=== PATIENT | male | born 2005 | race Caucasian/White ===

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

== ENCOUNTER 2025-05-09 07:49 | Day surgery (SDC) | payer BC, SELFPAY ==
[2025-05-09] VITALS (58 sets, daily range): BP systolic 81–142; BP diastolic 28–90; PULSE 58–121; RESP 14–22; TEMP 36.1–37.1; O2SAT 96–100; BMI 22.4
[2025-05-09] MEDS: Lactated Ringers 1,000 ML 1000 ML IV (08:20)
--- NOTE | 2025-05-09 08:21 | W.ED.GENAD ---
Discharge Plan Disposition Patient Disposition: Admit to [facility] Condition: Serious Discharge Details Clinical Impression: Acute appendicitis, Metabolic acidosis, increased anion gap Primary Care Provider: Mimi York ED Provider: Jhon Avalos Home Meds and New Rx's Prescriptions: No Action No Known Home Meds [facility] General Mode of arrival: ambulatory. Date/Time Provider Initiated Documentation: 05/09/25 08:00. Limitations to Documentation: no limitations. Information obtained by: patient. HPI Narrative: HISTORY OF PRESENT ILLNESS This is a 19-year-old male presenting with abdominal pain and vomiting. The patient reports experiencing abdominal pain that started at 2 AM today. The pain is described as radiating from left lower abdomen to the middle and then to the right lower abdomen, primarily located in the middle lower of the abdomen. He describes the pain as serious and has been vomiting since the onset. He also noticed a foul odor in his urine, which was light yellow in color. Additionally, he is experiencing chest pain, which he believes is due to the strain from vomiting. The patient has a history of similar episodes, which he refers to as attacks, characterized by constant vomiting, inability to eat, and chest pain. These attacks were previously associated with marijuana use, but he reports no recent use of marijuana or other drugs. He occasionally consumes alcohol, with his last intake being a week ago, and he vapes. He reports no recent fever, rash, swelling, burning sensation during urination, or penile discharge. He is not currently on any medications. Related Data Home Medications ?Medication ?Instructions ?Recorded ?Confirmed Unknown [No Known Home Meds] 05/09/25 05/09/25 Allergies Allergy/AdvReac Type Severity Reaction Status Date / Time No Known Allergies Allergy Verified 05/09/25 07:58 General Stated Complaint: Abd Prob LEONEL: 3 Review of Systems All systems reviewed & are unremarkable except as noted in HPI and below Constitutional Constitutional: Denies fever(s) Gastrointestinal Gastrointestinal: Reports as per HPI Exam Const General: cooperative and no acute distress HENMT Mouth: mucous membranes dry Eyes Conjunctivae: normal conjunctivae Sclera: normal sclerae Neck Neck: trachea midline and supple Resp Auscultation: clear to auscultation bilaterally, no rales, no rhonchi and no wheezes Cardio Rate: regular rate and not tachycardic Rhythm: regular rhythm GI Palpation: soft, not firm, no guarding, no masses, not rigid and tender (Lower abdomen) with no rebound tenderness Skin General skin exam: no rashes or lesions noted Neuro General: patient alert, patient awake and tone normal Extrem General: no edema Course Vital Signs Vital signs: Vital Signs Pulse 113 H 05/09/25 07:56 Respiratory Rate 20 05/09/25 07:56 Blood Pressure 123/78 05/09/25 07:56 Pulse Oximetry 98 05/09/25 07:56 Pulse 113 H 05/09/25 07:56 Respiratory Rate 20 05/09/25 07:56 Blood Pressure 123/78 05/09/25 07:56 Blood Pressure Position Sitting 05/09/25 07:56 Pulse Oximetry 98 05/09/25 07:56 Oxygen Delivery Method Room Air 05/09/25 07:56 Oxygen Flow Rate 0 05/09/25 07:56 Pain Level 10 05/09/25 07:56 Medical Decision Making ASSESSMENT AND PLAN Initial Assessment: Reports severe lower abdominal pain starting at 2 AM, accompanied by vomiting and foul-smelling urine. Pain described as more in the middle, radiating from one side to the other. Differential Diagnosis: - Appendicitis - Pancreatitis - Hepatitis - Gastroenteritis ED Course: - Zofran IV, Pepcid IV, LR IV fluid bolus administered. - Comprehensive set of labs ordered to assess for electrolyte abnormalities and other potential causes. - Labs reviewed and significant leukocytosis. Given retching and chest pain, consider esophageal rupture. Will obtain CT chest in addition to CT of the abdomen pelvis to assess for acute intra-abdominal surgical process. -Labs also concerning for metabolic acidosis with anion gap of 17. Hyperglycemia noted of 176. Plan to repeat. - CT of the chest abdomen pelvis was interpreted by radiology: 1. Findings consistent with acute appendicitis. - Plan to admit to surgical service. Ceftriaxone and Flagyl IV ordered. - 1012 -I spoke with Dr. Raymond, on-call general surgeon, discussed ED presentation course, he will admit the patient with plan for OR later today. - Patient reassessed, informed him and mother of results. Patient anxious. I will give Versed 1 mg IV for anxiety. Clinical Impression: - Acute appendicitis - Vomiting This document was written with the assistance of MARCUS Zuniga. The patient consented to its use. PFSH All Active Problems (Updated 05/09/25 @ 10:14 by Jhon Avalos MD) Metabolic acidosis, increased anion gap (Acute) Acute appendicitis (Acute) Pediatric body mass index (BMI) of greater than or equal to 95th percentile for age (Acute 11/25/15) Family History Mother Healthy adult on routine physical examination Father Healthy adult on routine physical examination Grandparent Heart disease Hyperlipidemia Cancer Social History Smoking/Tobacco Use Status: Current every day Tobacco Type: e-cigarettes Smoking risk assessment performed?: Yes Alcohol Intake: current Alcohol Intake frequency: holidays/special occasions only Drug use: Current Sobriety Substance use type: marijuana Details: girlfriend smokes marijuana but pt states he is allergic to it Housing: house Pets and animals: Yes Pets and animals: cat(s) and dog(s) Do you feel safe at home: Yes Do you feel safe in your relationship?: Yes
[2025-05-09 08:30] LABS: Abs Immature Grans 0.08 10^3/uL (0.0-0.06); HCT 45.1 % (40.0-50.0); HGB 15.7 g/dL (13.5-17.5); Immature Grans % 0.4 %; MCH 29.4 pg (27.0-33.0); MCHC 34.8 % (32.0-36.0); MCV 85 fL (80-95); MPV 10.3 fL (8.0-11.0); Platelet Count 318 10^3/uL (130-400); RBC 5.34 10^6/uL (4.36-5.78); RDW 13.1 % (11.8-14.1); RDW-SD 40.0 fL; WBC 21.62 10^3/uL (4.4-10.8)
[2025-05-09] MEDS: Ondansetron 4 MG/2 ML VIAL IVP (08:32)
[2025-05-09] MEDS: Normal Saline Flush 10 ML SYR IVP ×4 (08:33→11:21)
[2025-05-09] MEDS: Famotidine 20 MG/2 ML VIAL IVP (08:33)
--- NOTE | 2025-05-09 08:45 | DI.CT_ITS ---
Exam(s) CT CHEST/ABD/PEL W EXAM: CT CHEST/ABD/PEL W CLINICAL HISTORY: lower abd pain, vomiting, retching, chest pain. TECHNIQUE: Imaging Protocol: Axial computed tomography images with coronal and sagittal reformatted images were created and reviewed CONTRAST MATERIAL: Intravenous: Omnipaque 350 Contrast volume:100 ml Oral: None COMPARISON: No exams were available for comparison FINDINGS: CHEST: LUNGS: No infiltrates nor pleural effusions. No significant nodules. No pneumothorax.. MEDIASTINUM: There is no hilar nor mediastinal adenopathy. Visualized thyroid unremarkable. CARDIAC: Heart size is normal. There is no pericardial effusion.Caliber of the thoracic aorta is within normal limits. OSSEOUS: No significant osseous lesions.No fractures.. ABDOMEN: There is no ascites. LIVER: There are no focal hepatic lesions nor dilatation of intrahepatic ducts. GALLBLADDER/BILIARY: No obvious gallbladder pathology. CBD is not dilated. PANCREAS: No evidence of pancreatic mass nor dilatation of the pancreatic duct. SPLEEN: Spleen is not enlarged. There are no intrasplenic lesions. Splenic and portal veins are patent. ADRENALS: There are no significant adrenal masses. KIDNEYS: No calculi nor hydronephrosis. No solid renal masses. No cysts evident. ABDOMINAL AORTA: Abdominal aorta is not enlarged. LYMPH NODES: There is no retroperitoneal nor paraaortic adenopathy. ABDOMINAL WALL: No evidence of significant anterior abdominal wall nor inguinal hernia. GI: There is no evidence of bowel obstruction. PELVIS: LYMPH NODES: There is no intrapelvic nor inguinal adenopathy. GI: The appendix contains multiple calcified appendicoliths and the appendix is fluid-filled and widened to diameter of 10 mm.. consistent with appendicitis. No evidence of rupture at this time.No significant sigmoid findings. URINARY BLADDER: No calculi nor masses evident REPRODUCTIVE: Prostate normal size. Seminal vesicles unremarkable. OSSEOUS: No significant osseous lesions. No fractures. IMPRESSION: 1. Findings consistent with acute appendicitis. Report called by myself to ER 05/09/2025 at 10:05 a.m. RADIATION DOSE DELIVERED: 420.18mGy.cm Total DLP DATA REPOSITORY: All CT scans at this facility are submitted to the National Radiology Data Registry (NRDR) Dose Index Registry (DIR) with the [employer] (ACR). RADIATION OPTIMIZATION: All CT scans at this facility use at least one of these dose optimization techniques: automated exposure control; mA and/or kV adjustment per patient size (includes targeted exams where dose is matched to clinical indication); or iterative reconstruction.
[2025-05-09 09:06] LABS: ALT 10 U/L (16-63); AST 13 U/L (15-37); Albumin 4.6 g/dL (3.4-5.0); Alkaline Phosphatase 62 U/L (46-116); Anion Gap 17.0 mmol/L (3-11); BUN 11 mg/dL (7-18); Bilirubin, Total 1.4 mg/dL (0.2-1.0); CO2 23.0 mmol/L (21.0-32.0); Calcium 9.7 mg/dL (8.5-10.1); Chloride 101 mmol/L (98-107); Estimated GFR 99.17 (mL/min/1.73m2); Glucose 176 mg/dL (74-106); Lipase 17 U/L (<78); Magnesium 1.8 mg/dL (1.8-2.4); Potassium 3.6 mmol/L (3.5-5.1); Sodium 141 mmol/L (136-145); Total Protein 8.0 g/dL (6.4-8.2)
[2025-05-09] MEDS: Omnipaque 350 MG/ML 500 ML BTL-Imaging package IJ (09:23)
[2025-05-09] MEDS: Normal Saline - Diluent 50 ML VIAL IJ (09:23)
[2025-05-09] MEDS: cefTRIAXone 1 GM/50 ML BAG IVPB (10:15)
[2025-05-09] MEDS: metroNIDAZOLE 500 MG/100 ML BAG 100 MG IVPB (10:15)
--- NOTE | 2025-05-09 10:15 | W.PM.HP.N ---
Date of service: 05/09/25 Time of Service: 10:15 Assessment and Plan Assessment and plan (1) Acute appendicitis: Status: Acute Assessment and plan: I reviewed the CAT scan, and I do believe it is concordant with his history and physical exam, which all point to acute uncomplicated appendicitis. I explained the role of laparoscopic appendectomy and the treatment of appendicitis, what to expect in terms of recovery. I explained the risks and the benefits of the procedure, and I think Black has a good understanding of all of this. He has already been started on broad-spectrum antibiotics, and I anticipate urgent appendectomy today. History of Present Illness History of Present Illness Chief Complaint: Abdominal pain Narrative: Black is 19 years old. He was awoken from sleep with stabbing suprapubic pain around 2 AM. It sounds like this was preceded by about 2 to 3 days of not really feeling well, maybe with a little bit of abdominal discomfort. The pain last night was associated with nausea, and several episodes of vomiting. He came to the emergency department was found to have a leukocytosis around 22,000. He underwent a CT scan of the abdomen and pelvis that demonstrated acute appendicitis. He has never had any abdominal surgery. He has no allergies Review of Systems Constitutional Constitutional: Denies fever(s), Denies night sweats, Reports poor appetite and Denies weight loss Eyes Eyes: Reports system reviewed and no additional complaints, except as documented ENT Ears, Nose, Mouth, and Throat: Reports system reviewed and no additional complaints, except as documented Cardiovascular Cardiovascular: Reports chest pain (He believes secondary to vomiting) and Denies dyspnea Respiratory Respiratory: Denies chest congestion, Denies cough and Denies dyspnea Gastrointestinal Gastrointestinal: Reports abdominal pain, Reports nausea and Reports vomiting Genitourinary Genitourinary: Reports system reviewed and no additional complaints, except as documented Musculoskeletal Musculoskeletal: Reports system reviewed and no additional complaints, except as documented Psychiatric Psychiatric: Reports anxiety Hematologic/Lymphatic Hematologic/Lymphatic: Denies easy bleeding and Denies easy bruising PFSH All Active Problems (Updated 05/09/25 @ 10:14 by Jhon Avalos MD) Metabolic acidosis, increased anion gap (Acute) Acute appendicitis (Acute) Pediatric body mass index (BMI) of greater than or equal to 95th percentile for age (Acute 11/25/15) Family History Mother Healthy adult on routine physical examination Father Healthy adult on routine physical examination Grandparent Heart disease Hyperlipidemia Cancer Social History Smoking/Tobacco Use Status: Current every day Tobacco Type: e-cigarettes Smoking risk assessment performed?: Yes Alcohol Intake: current Alcohol Intake frequency: holidays/special occasions only Drug use: Current Sobriety Substance use type: marijuana Details: girlfriend smokes marijuana but pt states he is allergic to it Housing: house Pets and animals: Yes Pets and animals: cat(s) and dog(s) Do you feel safe at home: Yes Do you feel safe in your relationship?: Yes Meds Allergies and Home Medications Allergies Allergy/AdvReac Type Severity Reaction Status Date / Time No Known Allergies Allergy Verified 05/09/25 07:58 Home Medications ?Medication ?Instructions ?Recorded ?Confirmed ?Type Unknown [No Known Home Meds] 05/09/25 05/09/25 History Exam Const General: cooperative and anxious Orientation: alert, awake and oriented x3 HENMT Head: normal to inspection Eyes General: appearance normal, both eyes and all related structures Neck Neck: normal visual inspection, full ROM and no lymphadenopathy Resp Effort & Inspection: normal respiratory effort and able to speak in complete sentences Auscultation: clear to auscultation bilaterally Cardio Rate: regular rate Rhythm: regular rhythm Heart Sounds: S1 normal and S2 normal GI Inspection: normal to inspection and non-distended Palpation: soft, guarding (Suprapubic) and no hernias Auscultation: normal bowel sounds Results Imaging Abdomen CT scan report/results: report reviewed and image reviewed CT scan - pelvis: report reviewed and image reviewed Labs 05/09/25 08:20 05/09/25 08:20 Labs: Laboratory Results - last 24 hr 05/09/25 08:20 WBC 21.62 H RBC 5.34 Hgb 15.7 Hct 45.1 MCV 85 MCH 29.4 MCHC 34.8 RDW 13.1 Plt Count 318 MPV 10.3 Immature Gran % 0.4 Neutrophils % 91.3 Lymphocytes % 3.8 Monocytes % 4.2 Eosinophils % 0.0 Basophils % 0.3 Nucleated RBC % 0.0 Absolute Neutrophils 19.74 H Absolute Lymphocytes 0.82 L Absolute Monocytes 0.91 H Absolute Eosinophils 0.00 Absolute Basophils 0.06 Sodium 141 Potassium 3.6 Chloride 101 Carbon Dioxide 23.0 Anion Gap 17.0 H BUN 11 Creatinine 1.1 Est GFR (CKD-EPI 2020) 99.17 Glucose 176 H Calcium 9.7 Magnesium 1.8 Total Bilirubin 1.4 H AST 13 L ALT 10 L Alkaline Phosphatase 62 Total Protein 8.0 Albumin 4.6 Lipase 17 Last Vital Signs Temp 97.9 F 05/09/25 08:24 Pulse 68 05/09/25 09:10 Resp 18 05/09/25 08:24 BP 123/78 05/09/25 08:24 Pulse Ox 97 05/09/25 09:10 PAWSS Have you Been Recently Intoxicated or Drunk Within the Last 30 days?: No Have you Ever Experienced Previous Episodes of Alcohol Withdrawal?: No Have you ever Experienced Withdrawal Seizures?: No Have you ever Experienced Delirium Tremens(DT)s?: No Have you ever undergone Alcohol Rehabilitation Treatment (i.e, inpt ot outpatient treatment programs)?: No Have you ever Experienced Blackouts?: Yes Have you ever Combined Alcohol with other Downers within the last 90 days?: No Have you ever Combined Alcohol with any other Substance of Abuse during the last 90 days?: No Positive Blood Alcohol level on Presentation? [PCS.BAL]: No Evidence of Increased Autonomic Activity (i.e. HR>120, tremor, sweating, agitation, nausea)?: No Result: 1 Time Spent Time spent with Patient: 40-54 minutes Time was spent: preparing to see the patient(eg.review tests), obtaining and/or reviewing separately otained hiistory, referring, communicating with other health child care giver, indepentently interpreting results, counseling the patient and care coordination
[2025-05-09] MEDS: Midazolam 2 MG/2 ML VIAL 1 MG IVP (10:43)
--- NOTE | 2025-05-09 11:12 | ANES.PREOP_ITS ---
General Info Date of Service Date Performed: 05/09/25 Height: 6 ft 1 in Weight: 77.111 kg Body Mass Index (BMI): 22.4 Surgical Procedure: Operation Date: 05/09/25 11:40 Proposed Procedure Side Surgeon p Appendectomy Laparoscopic Arsh Raymond MD Meds Allergies and Home Medications Allergies Allergy/AdvReac Type Severity Reaction Status Date / Time No Known Allergies Allergy Verified 05/09/25 07:58 Home Medication ?Medication ?Instructions ?Recorded Unknown [No Known Home Meds] 05/09/25 Current Visit Medications: Current Medications Generic Name Dose Route Start Last Admin Trade Name Freq PRN Reason Stop Dose Admin IV Miscellaneous Supplies 1 each 05/09/25 08:15 Iv Access-Emergency Dept IV DIRECTED CARA Iohexol 500 ml 05/09/25 09:30 05/09/25 09:23 Omnipaque 350 Mg/Ml 500 Ml Btl-Imaging Package IJ 06/08/25 23:59 75 ml DIRECTED CARA Administration Sodium Chloride 0 ml 05/09/25 08:01 05/09/25 10:44 Normal Saline Flush 10 Ml Syr IVP 20 ml PRN PRN Administration Sodium Chloride 0 ml 05/09/25 08:30 05/09/25 09:23 Normal Saline Flush 10 Ml Syr IVP 10 ml BID CARA Administration Sodium Chloride 0 ml 05/09/25 08:01 Normal Saline 10 Ml Vial IJ DIRECTED PRN Sodium Chloride 0 ml 05/09/25 09:22 Normal Saline Flush 10 Ml Syr IVP PRN PRN Sodium Chloride 50 ml 05/09/25 09:30 05/09/25 09:23 Normal Saline - Diluent 50 Ml Vial IJ 50 ml DIRECTED CARA Administration PFSH Active Problems Active Problems: Problem Status Onset Code Metabolic acidosis, increased anion gap Acute E87.29 Acute appendicitis Acute K35.80 Pediatric body mass index (BMI) of greater than or equal to 95th percentile for age Acute 11/25/15 Z68.54 Tobacco Smoking/Tobacco Use Status: Current every day Tobacco Type: e-cigarettes Passive smoking exposure: Yes (dad outside) Alcohol Alcohol Intake: current Alcohol intake frequency: holidays/special occasions only Substance Use Substance use: Current Sobriety Substance use type: marijuana Details: girlfriend smokes marijuana but pt states he is allergic to it Vital Signs and Lab Results Vital Signs Most Recent Vital Signs in EMR: Most Recent Vital Signs Temp Pulse Resp BP Pulse Ox 36.6 C 73 16 126/90 99 05/09/25 08:24 05/09/25 11:01 05/09/25 10:49 05/09/25 11:01 05/09/25 11:01 Lab Results 05/09/25 08:20 05/09/25 08:20 Complete Blood Count: 2 WBC, (4.4-10.8) 21.62 10^3/uL H Today, 08:20 RBC, (4.36-5.78) 5.34 10^6/uL Today, 08:20 Hgb, (13.5-17.5) 15.7 g/dL Today, 08:20 Hct, (40.0-50.0) 45.1 % Today, 08:20 Plt Count, (130-400) 318 10^3/uL Today, 08:20 Complete Metabolic Panel: 2 Sodium, (136-145) 141 mmol/L Today, 08:20 Potassium, (3.5-5.1) 3.6 mmol/L Today, 08:20 Chloride, (98-107) 101 mmol/L Today, 08:20 Carbon Dioxide, (21.0-32.0) 23.0 mmol/L Today, 08:20 BUN, (7-18) 11 mg/dL Today, 08:20 Creatinine, (0.70-1.30) 1.1 mg/dL Today, 08:20 Est GFR (CKD-EPI 2020), (mL/min/1.73m2) 99.17 Today, 08:20 Magnesium, (1.8-2.4) 1.8 mg/dL Today, 08:20 Calcium, (8.5-10.1) 9.7 mg/dL Today, 08:20 Albumin, (3.4-5.0) 4.6 g/dL Today, 08:20 Glucose, (74-106) 176 mg/dL H Today, 08:20 Liver Function Panel: 2 ALT, (16-63) 10 U/L L Today, 08:20 AST, (15-37) 13 U/L L Today, 08:20 Pancreas Panel: 2 Lipase, (<78) 17 U/L Today, 08:20 Anesthesia Assessment and Plan Anesthesia History Personal History: No History of General Anesthesia Family History: No Family History of Anesthesia Complications Exercise Tolerance Exercise Tolerance: Metabolic Equivalents>4 Pertinent Negatives Pertinent Negatives: Other (Hx of GERD) Cardiac & Pulmonary Exam Cardiac Exam: Normal S1/S2 Heart Sounds Pulmonary Exam: Clear Bilateral Breath Sounds Implantable Cardiac Device Does patient have a Pacemaker or an ICD?: No Airway Exam Known Difficult Airway: No Mallampati Class: 2 Mouth Opening: Normal (> 3cm) Thyromental Distance: Greater than 3 cm Neck Range of Motion: Full ROM Neck Circumference: Normal Teeth Condition: Normal Dentition ASA Classification ASA Score: ASA 2 Emergency Case?: Yes NPO Status NPO Status: NPO Clears >2 hours, Solids >8 hours Anesthesia Plan Resuscitation Status: Full Code Anesthesia Technique: General Anesthesia Airway Planned: Endotracheal Tube Monitors Used: Standard Monitors and SedLine
[2025-05-09] MEDS: Metoclopramide 10 MG/2 ML VIAL IVP (11:20)
--- NOTE | 2025-05-09 11:36 | W.PM.DSUDISC ---
Date of service: 05/09/25 Discharge Plan Disposition Patient Disposition: Home Condition: Good Discharge Details Reason For Visit: Appendicitis Attending Provider: Arsh Raymond Primary Care Provider: Mimi York Home Meds and New Rx's Prescriptions: New tramadol 50 mg tablet 50 mg PO Q8H PRNQty: 9 0RF Rx Instructions: Take one tablet by mouth up to every 8 hours if needed for severe pain Discharge Instructions Instructions: Appendectomy, Laparoscopic Surgery (DC) Additional Instructions: Edilson, it was good to meet you and your family today, and I hope you make a quick and uneventful recovery as you transition home. As we suspected, you had acute appendicitis, that was causing your abdominal pain. We were able to remove your appendix with a camera just as we talked about beforehand. Everything went very smoothly. As you get home, you should be using Tylenol and ibuprofen [id number] for the next 2 days. I usually recommend patients alternate these, that is take a Tylenol, then 6 hours later take an ibuprofen, 6 hours after that another Tylenol, etc. I have put in a prescription for a medication called tramadol that you can use for more severe pain. Use this only if you need it. You should also be using ice packs over the incisions or anywhere that you have pain. This will be especially helpful with swelling after surgery. It is quite normal to get bruising at the incisions, so if that occurs, do not be alarmed at all. I would like to know, however, if the skin starts turning bright red, if there is any thick white drainage from the wounds. I do not expect any of that to happen, but certainly there are things that we can do if it develops. Starting tomorrow, you can remove all of the bandages, and wash all of the incisions with warm soapy water. The incision should be rinsed from soap, and dried afterwards. You are welcome to do this in the shower. If you feel more comfortable replacing Band-Aids over the incisions that is fine. Alternatively, if they are not bothersome, then they do not need to be covered. The incision should be washed at least once, if not twice every day. If you need anything at all, please do not hesitate to call at any time. Otherwise, I look forward to seeing you in the office on the at your follow-up visit. Stand Alone Forms: Anesthesia Discharge Inst., Paulino Tam ([facility]U) Referrals: Arsh Raymond MD [ [facility] STAFF PHYSICIAN, Surgery] - 05/23/25 11:00 am Activity:: no heavy lifting Remove Dressings/Wound Care:: 24 hours Shower/Bathe:: 24 hours Diet:: As Tolerated Discharge Orders Discharge Orders: Discharge Order (Routine); Ordered 05/09/25 Ordered By: Arsh Raymond DS: Diagnosis Discharge Diagnosis (1) Acute appendicitis: Status: Acute Asessment and Plan: Outpatient postoperative follow-up
[2025-05-09] MEDS: Lactated Ringers 1,000 ML 125 ML IV (11:40)
--- NOTE | 2025-05-09 12:10 | APP_PTH ---
PATIENT: Edilson Mendoza LOC: [facility] U#:[id number] AGE/SX: 19/M ROOM: RE05/09/[address]: Arsh Raymond MD : 2005 BED: DIS: 05/09/2025 SPEC #: [id number] RECD: 05/09/25 12:54 STATUS: ZAK RE #: [id number] NAHEED: 05/09/25 12:[address]: Arsh Raymond DEPT: Surgical Specimen RECD BY: Shirley Foster ENTERED: 05/09/25 12:54 SP TYPE: Appendix OTHR DR: Mimi York Tissues: 1 - APPENDIX NOT INCIDENTAL Procedures: GROSS AND MICRO LEVEL 3 Comments: [id number]
[2025-05-09] MEDS: Bupivacaine 0.25% Pres-Free W/EPI 30 ML VIAL (12:12)
--- NOTE | 2025-05-09 12:31 | ROE_ITS ---
Operative Note Operative Note PRE-OP DIAGNOSIS: Acute appendicitis POST-OP DIAGNOSIS: same PROCEDURE: Laparoscopic appendectomy SURGEON: Arsh Raymond CONVEYOR FEEDER OFFBEARER: Madeline Tamayo ANESTHESIA TYPE: Local By Surgeon and General LMA/ETT Refer to Anesthesia Record ESTIMATED BLOOD LOSS: 25 PATHOLOGY: other (Appendix) COMPLICATIONS: None Patient was transported to: PACU Patient's condition: stable Indications: Edilson is a 19-year-old male with acute onset of suprapubic abdominal pain. A leukocytosis and a CAT scan to confirm the diagnosis of appendicitis. He needs a laparoscopic appendectomy and Findings: Acute appendicitis Procedure Description: After the induction of general anesthesia, I prepped and draped the anterior abdominal wall in the usual fashion. Next, I made an umbilical incision. Using a 5 mm optical viewing port, establish pneumoperitoneum. Next, with the assistance of the laparoscope, I placed 5 mm port in the left lower quadrant and a 12 mm port in the suprapubic position. I then moved the scope into the left lower quadrant, and positioned the patient with some Trendelenburg and left side down. I started by examining the area of the right lower quadrant. I reflected the greater omentum cephalad and identified the terminal ileum. As soon as the omentum was elevated, dilated and inflamed appendix revealed itself. The appendix was elevated towards the anterior abdominal wall and I then used sequential firings of the LigaSure to divide the mesoappendix. Once this was complete I divided the appendix from the cecum at its base with a CHICA stapler. A healthy cuff of cecum was removed with the specimen, and this required 2 fires of a CHICA. The staple line was healthy appearing and hemostatic. I placed the appendix into an Endo Catch bag and removed through the suprapubic port site. I examined the surgical field. The staple line looked fine. There was no contamination or spillage and the surgical field was hemostatic. The suprapubic port was exchanged for a large Nahid Grace wound closure device, and the wound was closed with 2-0 Vicryl stitches. I then removed the left lower quadrant port under the vision the laparoscope. this was hemostatic. The umbilical port was then removed, and the skin and subcutaneous tissues were closed with interrupted absorbable sutures. Bandages were applied, Edilson was awoken from the anesthetic, extubated, and transferred to the recovery Date of Procedure: 05/09/25
[2025-05-09] MEDS: ePHEDrine 25 MG/5 ML Syringe IVP ×2 (12:41→13:01)
--- NOTE | 2025-05-09 13:50 | W.ANESPOSTOP ---
Postoperative Evaluation Date, Time and Location Date Performed: 05/09/25 Time Performed: 13:50 Patient Location: Day Surgery Unit Vital Signs Most Recent Imported Vital Signs: Most Recent Vital Signs Temp Pulse Resp BP Pulse Ox 36.7 C 91 H 14 109/63 100 05/09/25 13:30 05/09/25 13:30 05/09/25 13:30 05/09/25 13:30 05/09/25 13:30 Pain Score Most Recent Pain Score: Most Recent Pain Score Pain Level 1 05/09/25 13:32 Assessment Mental Status: Awake (Alert & Oriented to Patient Baseline) Airway and Respiratory Function: Patent airway with normal (patient baseline) respiratory exam Cardiovascular Function: Hemodynamically Stable Hydration Status: Adequately Hydrated Nausea & Vomiting: No Nausea or Vomiting Pain: Pain is tolerable per patient Peripheral Nerve Block: Patient did not receive a nerve block
== END 2025-05-09 14:30 | disposition home or self-care (01) ==
LOC: ER 10:32 → SUR 11:25
PROVIDERS: Emergency Provider Student in an Organized Health Care Education/Training Program; PCP Pediatrics; Visit Provider Surgery
PROC: 0DTJ4ZZ Resection of Appendix, Percutaneous Endoscopic Approach (ICD-10-PCS; CPT 44970; principal; 2025-05-09 11:30)
DX: K35.80 Unspecified acute appendicitis (principal)
CPT/HCPCS: 44970; 36415; 74177; 80053; 83690; 96361; 96365; 96367; 96375; 99285; 71260; 83735; 85025; 88304; J0131; J0696; J1100; J1836; J1885; J2003; J2250; J2405; J2704; J2765; J3010

== ENCOUNTER 2025-05-16 11:51 | Emergency (ER) | payer BC, SELFPAY ==
[2025-05-16 11:53] VITALS: BP 144/76; PULSE 103; RESP 22; TEMP 36.6; O2SAT 98
[2025-05-16 12:02] VITALS: BP 144/76; PULSE 103; RESP 22; TEMP 36.6; O2SAT 98
--- NOTE | 2025-05-16 12:45 | DI.CT_ITS ---
Exam(s) CT ABDOMEN PELVIS W EXAM: CT ABDOMEN PELVIS W CLINICAL HISTORY: Abd pain, vimiting post-appy TECHNIQUE: Imaging Protocol: Axial computed tomography images with coronal and sagittal reformatted images were created and reviewed. CONTRAST MATERIAL: Intravenous: Omnipaque 350 Contrast volume:75 mL Oral: No COMPARISON: CT CT CHEST/ABD/PEL W from 05/09/2025 FINDINGS: ABDOMEN: Lung Bases: No acute abnormality. Liver: Normal density. No measurable mass. Portal, Superior Mesenteric, and Splenic Veins: Unremarkable. Gallbladder and Biliary Tract: No radiodense calculus or dilation. Pancreas: Normal density, no abnormal calcifications or inflammatory process. Spleen: Normal. Adrenals: No masses seen. Kidneys: Normal size, contour and axis. No radiodense stones or obstructive uropathy. No masses seen. Abdominal Aorta: Abdominal portion non-dilated. Bowel: No obstruction or bowel wall thickening. The patient is status post appendectomy. Peritoneal Cavity: There is a small amount of fluid seen in the pelvis on the right but no focal fluid collection is seen to suggest an abscess. No free air. Lymph Nodes: Within normal limits. Bones: Within normal limits for the patient's age. Soft Tissues: Unremarkable. PELVIS: Bladder: Symmetric distention, no gross wall thickening. Reproductive Organs: Unremarkable as visualized. Lymph Nodes: Within normal limits. Bones: Within normal limits for the patient's age. IMPRESSION: 1. Status post appendectomy. 2. There is a small amount of free fluid in the right pelvis but no focal fluid collection is seen to suggest an abscess. 3. There is no pneumoperitoneum. RADIATION DOSE DELIVERED: 416.93mGy.cm Total DLP DATA REPOSITORY: All CT scans at this facility are submitted to the National Radiology Data Registry (NRDR) Dose Index Registry (DIR) with the [employer] (A[employer]). RADIATION OPTIMIZATION: All CT scans at this facility use at least one of these dose optimization techniques: automated exposure control; mA and/or kV adjustment per patient size (includes targeted exams where dose is matched to clinical indication); or iterative reconstruction.
[2025-05-16 13:02] LABS: Abs Immature Grans 0.10 10^3/uL (0.0-0.06); HCT 46.4 % (40.0-50.0); HGB 15.5 g/dL (13.5-17.5); Immature Grans % 0.7 %; MCH 28.7 pg (27.0-33.0); MCHC 33.4 % (32.0-36.0); MCV 86 fL (80-95); MPV 9.9 fL (8.0-11.0); Platelet Count 412 10^3/uL (130-400); RBC 5.41 10^6/uL (4.36-5.78); RDW 13.0 % (11.8-14.1); RDW-SD 40.7 fL; WBC 13.53 10^3/uL (4.4-10.8)
[2025-05-16] MEDS: HYDROmorphone 2 MG/ML SYR 0.5 MG IVP ×2 (13:07→15:38)
[2025-05-16] MEDS: Lactated Ringers 1,000 ML 1000 ML IV (13:07)
[2025-05-16] MEDS: Ondansetron 4 MG/2 ML VIAL IVP (13:07)
[2025-05-16 13:20] LABS: ALT 13 U/L (16-63); AST 12 U/L (15-37); Albumin 4.4 g/dL (3.4-5.0); Alkaline Phosphatase 58 U/L (46-116); Anion Gap 12.0 mmol/L (3-11); BUN 10 mg/dL (7-18); Bilirubin, Total 0.7 mg/dL (0.2-1.0); CO2 25.0 mmol/L (21.0-32.0); Calcium 9.4 mg/dL (8.5-10.1); Chloride 103 mmol/L (98-107); Estimated GFR 111.19 (mL/min/1.73m2); Glucose 119 mg/dL (74-106); Lipase 19 U/L (<78); Magnesium 2.0 mg/dL (1.8-2.4); Potassium 3.8 mmol/L (3.5-5.1); Sodium 140 mmol/L (136-145); Total Protein 7.6 g/dL (6.4-8.2)
--- NOTE | 2025-05-16 13:24 | W.ED.GENAD ---
Discharge Plan Disposition Patient Disposition: Home Condition: Stable Discharge Details Clinical Impression: Acute postoperative abdominal pain Primary Care Provider: Mimi York ED Provider: Amanda Mccollum Home Meds and New Rx's Prescriptions: New ondansetron 4 mg tablet,disintegrating 4 mg PO Q8H PRNQty: 7 0RF No Action tramadol 50 mg tablet 50 mg PO Q8H PRNQty: 9 0RF Rx Instructions: Take one tablet by mouth up to every 8 hours if needed for severe pain Discharge Instructions Instructions: Managing pain after surgery Additional Instructions: You were seen in the emergency department today for evaluation of abdominal pain after your recent appendectomy. In our department you had a full physical examination performed, received fluids and medications for your pain and nausea. You had laboratory studies that were very reassuring, your white blood cell count is decreasing as we expected, and there is no evidence of other concerning abnormalities to explain your symptoms. You had a CT scan that did not show any evidence of abscess, bowel obstruction, or other concerning changes. You are likely experiencing a worsening of your postoperative pain, and should continue your multimodal pain management regimen at home. Please use therapeutic dosing of Tylenol (acetaminophen) & Advil (ibuprofen) in an alternating fashion as follows: Take 1000mg of Tylenol every 6 hours without missing doses- that is 4 times per day. [place] in between the Tylenol doses, take 600mg of Advil also on a 6 hour schedule, that is also 4 times per day. With this strategy, you will be taking something for fever/pain as often as every 3 hours. The daily maximum dosing of Tylenol is 4000mg, and the daily maximum dosing of Advil is 2400mg. Please note that some common cold medications & prescription pain medications may contain acetaminophen and you need to read OTC drug labels and factor that in to maximum daily doses. You can use your tramadol as needed for severe pain that does not respond to this regimen. Additionally I provided you with a prescription for Zofran, a medication for nausea which can be taken as needed to help you maintain your hydration. Please focus on hydration with water and electrolyte containing fluids, as the increase in your soda intake may have contributed to some of your discomfort. You have a follow-up appointment with Dr. Raymond with general surgery scheduled for Tuesday, 11:45 AM. You can contact his office by phone with any concerns or questions. Please follow-up with your primary care provider in the next few days to discuss this visit and any symptoms that change, worsen, or persist. Thank you for allowing us to be part of your care. Referrals: Arsh Raymond MD [ [facility] STAFF PHYSICIAN, Surgery] [facility] General Mode of arrival: ambulatory. Date/Time Provider Initiated Documentation: 05/16/25 12:08. Limitations to Documentation: no limitations. Information obtained by: patient and old records reviewed. HPI Narrative: This is a 19-year-old male patient with a history most notable for appendicitis 1 week postop after appendectomy, presenting for evaluation of abdominal pain with nausea and vomiting. The patient states that he was improving clinically after discharge, until this morning when he had recurrence of his abdominal discomfort. He states that he had some nausea and dry heaving. Last passed the stool today, no urinary symptoms. He has not had a fever. He states that he took Tylenol and tramadol at home without improvement. The patient has no other abdominal surgical history, has had decreased p.o. intake today in the setting of his pain and nausea. Related Data Home Medications ?Medication ?Instructions ?Recorded ?Confirmed tramadol 50 mg tablet 50 mg PO Q8H PRN #9 tabs 05/09/25 05/16/25 ondansetron 4 mg disintegrating 4 mg PO Q8H PRN #7 tabs 05/16/25 tablet Previous Rx's ?Medication ?Instructions ?Recorded tramadol 50 mg tablet 50 mg PO Q8H PRN #9 tabs 05/09/25 ondansetron 4 mg disintegrating 4 mg PO Q8H PRN #7 tabs 05/16/25 tablet Allergies Allergy/AdvReac Type Severity Reaction Status Date / Time No Known Allergies Allergy Verified 05/16/25 11:56 General Stated Complaint: Abd Prob LEONEL: 3 Exam Narrative Exam Narrative: Gen: Awake and alert, in no apparent distress HEENT: Non-icteric sclera Neck: Supple Lungs: No apparent respiratory distress, normal respiratory effort. CV: Appears well perfused, heart with slightly tachycardic rate and regular rhythm, strong distal pulse Abdomen: Non-distended, soft, tender to palpation with guarding, no rigidity or rebound. The laparoscopic wounds are well-approximated and healing, with no palpable fluctuance, surrounding redness, induration, or warmth. No drainage is appreciated MSK: Moves 4 extremities without apparent limitation in ROM Skin: Visualized skin without rashes, cyanosis. Neuro: Normal Gait, no obvious focal deficits or facial asymmetry. Speaks in full, clear sentences. Psych: Appropriate for situation. Course Vital Signs Vital signs: Vital Signs Temperature 36.6 C 05/16/25 11:53 Pulse 103 H 05/16/25 11:53 Respiratory Rate 22 05/16/25 11:53 Blood Pressure 144/76 H 05/16/25 11:53 Pulse Oximetry 98 05/16/25 11:53 Temperature 36.6 C 05/16/25 12:02 Temperature Source Oral 05/16/25 11:53 Pulse 103 H 05/16/25 12:02 Respiratory Rate 22 05/16/25 12:02 Blood Pressure 144/76 H 05/16/25 12:02 Blood Pressure Position Sitting 05/16/25 11:53 Pulse Oximetry 98 05/16/25 12:02 Oxygen Delivery Method Room Air 05/16/25 11:53 Oxygen Flow Rate 0 05/16/25 11:53 Pain Level 10 05/16/25 13:07 Lab/Test Results Lab/Test Results: Laboratory Tests Range/Units 05/16/25 12:56 WBC (4.4-10.8) 10^3/uL 13.53 H RBC (4.36-5.78) 10^6/uL 5.41 Hgb (13.5-17.5) g/dL 15.5 Hct (40.0-50.0) % 46.4 MCV (80-95) fL 86 MCH (27.0-33.0) pg 28.7 MCHC (32.0-36.0) % 33.4 RDW (11.8-14.1) % 13.0 Plt Count (130-400) 10^3/uL 412 H MPV (8.0-11.0) fL 9.9 Immature Gran % % 0.7 Neutrophils % % 78.9 Lymphocytes % % 13.7 Monocytes % % 5.9 Eosinophils % % 0.4 Basophils % % 0.4 Nucleated RBC % (0.0-0.3) % 0.0 Absolute Neutrophils (1.2-6.7) 10^3/uL 10.68 H Absolute Lymphocytes (1.2-3.4) 10^3/uL 1.85 Absolute Monocytes (0.1-0.8) 10^3/uL 0.80 Absolute Eosinophils (0.0-0.7) 10^3/uL 0.05 Absolute Basophils (0.0-0.2) 10^3/uL 0.05 Sodium (136-145) mmol/L 140 Potassium (3.5-5.1) mmol/L 3.8 Chloride (98-107) mmol/L 103 Carbon Dioxide (21.0-32.0) mmol/L 25.0 Anion Gap (3-11) mmol/L 12.0 H BUN (7-18) mg/dL 10 Creatinine (0.70-1.30) mg/dL 1.0 Est GFR (CKD-EPI 2020) (mL/min/1.73m2) 111.19 Glucose (74-106) mg/dL 119 H Calcium (8.5-10.1) mg/dL 9.4 Magnesium (1.8-2.4) mg/dL 2.0 Total Bilirubin (0.2-1.0) mg/dL 0.7 AST (15-37) U/L 12 L ALT (16-63) U/L 13 L Alkaline Phosphatase (46-116) U/L 58 Total Protein (6.4-8.2) g/dL 7.6 Albumin (3.4-5.0) g/dL 4.4 Lipase (<78) U/L 19 Medical Decision Making This is a 19-year-old male patient presenting for evaluation of postoperative abdominal pain with nausea and vomiting. My differential includes but is not limited to intra-abdominal abscess, ileus, bowel obstruction, dehiscence/pneumoperitoneum, certainly considered other primary intra-abdominal pathologies including gastroenteritis, gastritis/PID, pancreatitis, cholecystitis, hepatitis, diverticulitis. Considered urinary tract infection, pyelonephritis, and renal stones. We will obtain labs to include CBC, CMP, magnesium, lipase, and provide the patient with a liter of IV fluids. He will receive Zofran and Dilaudid for initial management of pain. We will obtain a CT of his abdomen and pelvis to better evaluate for postoperative complications. - I independently interpreted the laboratory studies, which show an improving leukocytosis, but no anemia, or thrombocytopenia. The chemistry panel is without evidence of electrolyte abnormality, kidney dysfunction, or liver injury. Lipase is low, and CT was reviewed by myself, showing a trace amount of appropriate postoperative fluid in the pelvis/right lower quadrant, no abscess or pneumoperitoneum. No other abnormalities appreciated to explain the patient's symptoms. On reevaluation the patient reports that his symptoms are improved but not entirely resolved. Tylenol and a second dose of Dilaudid were provided. After this the patient was able to sit more comfortably, tolerated oral intake without nausea or vomiting. I discussed the case with Dr. Raymond, who performed this patient surgery, and did not identify any urgent findings that would require return to surgery, admission to the hospital or other acute intervention. I counseled the patient on ongoing multimodal pain management for his postoperative pain, and provided him with a prescription for Zofran for nausea. I counseled him on good hydration and nutrition, and Dr. Raymond was able to move up this patient's follow-up visit to Tuesday at 11:45 AM. He and his parent were informed of this time change. At this time, the patient has had a full medical evaluation and is safe for discharge to home. They are hemodynamically stable, ambulatory, and tolerating PO. They are understanding of the follow-up plan and return precautions. They left our facility without incident. Amanda Mccollum MD [facility] All Active Problems (Updated 05/16/25 @ 16:44 by Amanda Mccollum MD) Acute postoperative abdominal pain (Acute) Metabolic acidosis, increased anion gap (Acute) Acute appendicitis (Acute) Pediatric body mass index (BMI) of greater than or equal to 95th percentile for age (Acute 11/25/15) Family History Mother Healthy adult on routine physical examination Father Healthy adult on routine physical examination Grandparent Heart disease Hyperlipidemia Cancer Social History Smoking/Tobacco Use Status: Current every day Tobacco Type: e-cigarettes Smoking risk assessment performed?: Yes Alcohol Intake: current Alcohol Intake frequency: holidays/special occasions only Drug use: Current Sobriety Substance use type: marijuana Details: girlfriend smokes marijuana but pt states he is allergic to it Housing: house Pets and animals: Yes Pets and animals: cat(s) and dog(s) Do you feel safe at home: Yes Do you feel safe in your relationship?: Yes
[2025-05-16] MEDS: Omnipaque 350 MG/ML 100 ML BTL IJ (13:36)
[2025-05-16] MEDS: Normal Saline - Diluent 50 ML VIAL IJ (13:36)
[2025-05-16 14:02] VITALS: PULSE 89; RESP 16; O2SAT 99
[2025-05-16] MEDS: ACETAMINOPHEN 1,000 MG/100 ML BAG 400 MG IVPB (15:38)
[2025-05-16 15:55] VITALS: BP 127/75; PULSE 78; RESP 20; O2SAT 99
[2025-05-16 16:34] LABS: Glucose Negative (Negative)
[2025-05-16 16:41] LABS: C & S Indicated? No; RBC 0-2 HPF (0-2); WBC Negative HPF (0-5)
[2025-05-16] MEDS: Ondansetron O.D.T. 4 MG TABEF, 3 TABS/BTL PO (16:47)
== END 2025-05-16 16:58 | disposition home or self-care (01) ==
PROVIDERS: Emergency Provider Emergency Medicine; PCP Pediatrics
DX: G89.18 Other acute postprocedural pain (principal); R10.9 Unspecified abdominal pain; R11.2 Nausea with vomiting, unspecified
CPT/HCPCS: 36415; 80053; 83690; 96361; 96365; 96375; 96376; 99285; 74177; 81003; 81015; 83735; 85025; 99284; J0131; J1171; J2405; J3490

== ENCOUNTER 2025-07-04 19:08 | Emergency (ER) | payer BC, SELFPAY ==
[2025-07-04] VITALS (22 sets, daily range): BP systolic 115–148; BP diastolic 52–85; PULSE 60–103; RESP 18; TEMP 37.1–37.3; O2SAT 95–100
--- NOTE | 2025-07-04 19:15 | DI.CT_ITS ---
Exam(s) CT HEAD WO EXAM: CT HEAD WO CLINICAL HISTORY: Syncope, Head Injury. TECHNIQUE: Imaging Protocol: Axial computed tomography images with coronal and sagittal reformatted images were created and reviewed COMPARISON: No exams were available for comparison FINDINGS: Ventricles and Extra axial spaces: Normal in size and morphology for the patient's age. Hemorrhage: None. Cerebral parenchyma: Normal. Midline shift: None. Brainstem/Cerebellum: Normal. Calvarium: Normal. Visualized Paranasal sinuses/Mastoids: Clear. Soft Tissues: Unremarkable. IMPRESSION: 1. No acute intracranial process. 2. The preliminary [facility] report was reviewed. RADIATION DOSE DELIVERED: 1,048.19mGy.cm Total DLP DATA REPOSITORY: All CT scans at this facility are submitted to the National Radiology Data Registry (NRDR) Dose Index Registry (DIR) with the [employer] ([employer]). RADIATION OPTIMIZATION: All CT scans at this facility use at least one of these dose optimization techniques: automated exposure control; mA and/or kV adjustment per patient size (includes targeted exams where dose is matched to clinical indication); or iterative reconstruction.
--- NOTE | 2025-07-04 19:15 | RT.EKG_ITS ---
APPROVED REPORT Exam: Resting ECG Reason for Exam: Chest Pain Patient Location: E HR:73 bpm ECG Measurements Heart Rate 73 AXIS AZ 133 P 72 QRSd 87 QRS 90 QT 517 T 58 QTc 571 Conclusion Sinus rhythm, rate 73 Notably prolonged QTc to 571ms, new from priors No STEMI
--- NOTE | 2025-07-04 19:15 | DI.CT_ITS ---
Exam(s) CT ABDOMEN PELVIS W EXAM: CT ABDOMEN PELVIS W CLINICAL HISTORY: Abdominal pain, Vomiting TECHNIQUE: Imaging Protocol: Axial computed tomography images with coronal and sagittal reformatted images were created and reviewed. CONTRAST MATERIAL: Intravenous: Omnipaque 350 Contrast volume:75 mL Oral: No COMPARISON: CT CT CHEST/ABD/PEL W from 05/09/[address] ABDOMEN PELVIS W from 05/16/2025 FINDINGS: ABDOMEN: Lung Bases: No acute abnormality. Liver: Normal density. No measurable mass. Portal, Superior Mesenteric, and Splenic Veins: Unremarkable. Gallbladder and Biliary Tract: No radiodense calculus or dilation. Pancreas: Normal density, no abnormal calcifications or inflammatory process. Spleen: Normal. Adrenals: No masses seen. Kidneys: Normal size, contour and axis. No radiodense stones or obstructive uropathy. No masses seen. Abdominal Aorta: Abdominal portion non-dilated. Bowel: No obstruction or bowel wall thickening. There are surgical clips seen at the base of the cecum suggesting prior appendectomy. Peritoneal Cavity: No ascites, collection or mesenteric inflammatory response. No free air. Lymph Nodes: Within normal limits. Bones: Within normal limits for the patient's age. Soft Tissues: Unremarkable. PELVIS: Bladder: Symmetric distention, no gross wall thickening. Reproductive Organs: Unremarkable as visualized. Lymph Nodes: Within normal limits. Bones: Within normal limits for the patient's age. IMPRESSION: 1. No acute abdominal or pelvic process. 2. The preliminary [facility] report was reviewed. RADIATION DOSE DELIVERED: 425.79mGy.cm Total DLP DATA REPOSITORY: All CT scans at this facility are submitted to the National Radiology Data Registry (NRDR) Dose Index Registry (DIR) with the [employer] (ACR). RADIATION OPTIMIZATION: All CT scans at this facility use at least one of these dose optimization techniques: automated exposure control; mA and/or kV adjustment per patient size (includes targeted exams where dose is matched to clinical indication); or iterative reconstruction.
--- NOTE | 2025-07-04 19:44 | ED.GENADUL_ITS ---
Discharge Plan Discharge Details Chief Complaint: RespSymp Primary Care Provider: Mimi York ED Provider: Zarina Esparza Home Meds and New Rx's Prescriptions: No Action No Known Home Meds HPI General Mode of arrival: ambulatory . Date/Time Provider Initiated Documentation: 07/04/25 19:17 . Limitations to Documentation: no limitations . Information obtained by: patient, RN notes reviewed and old records reviewed . HPI Narrative: 19-year-old male presents to the ER after a syncopal episode while getting out of the bathtub earlier this evening. Patient states he has been sick with nausea vomiting diarrhea for the last 4 to 5 days body aches and chills. He has been unable to keep down any oral fluids x 4 days. He is complaining of generalized abd pain and burning. He also reports a stabbing type pain in his chest and scalp soreness onto the back of his head. Past medical history includes appendectomy approximately 1 month ago. Related Data Home Medications ?Medication ?Instructions ?Recorded ?Confirmed Unknown [No Known Home Meds] 05/20/25 1 09/03/24 Allergies Allergy/AdvReac Type Severity Reaction Status Date / Time No Known Allergies Allergy Verified 07/04/25 19:16 General Stated Complaint: RespSymp LEONEL: 3 Review of Systems All systems reviewed & are unremarkable except as noted in HPI and below Cardiovascular Cardiovascular: Reports chest pain, Reports syncope and Denies dyspnea Respiratory Respiratory: Denies dyspnea Gastrointestinal Gastrointestinal: Reports abdominal pain, Reports diarrhea, Reports nausea and Reports vomiting Neurologic Neurologic: Reports syncope Exam Narrative Exam Narrative: Constitutional: Alert and oriented x3. Appears stated age. Normal body habitus. Head: Normocephalic, no trauma. Eyes: Pupils PERRL, Red reflex noted, EOM's intact. Eyelids symmetrical without lesions, discharge, or swelling. ENT: Bilateral TM's WNL, External ear normal to inspection, no mastoid TTP, swelling, or erythema, Nasal turbinates WNL, no nasal discharge. Normal dentition, Posterior pharynx WNL, no exudate. Chest: RRR, Normal S1, S2, distal pulses intact. Resp: Lungs clear to auscultation bilaterally, no wheezes, rales, or rhonchi. Abdomen: Soft, non-distended, generalized tenderness with palpation all 4 quadrants. Musculoskeletal: Normal gait, Moves all 4 extremities without difficulty. Skin: No suspicious rashes or lesions. Capillary refill less than 2 sec. Neurologic: Cranial nerves II-XII intact. Alert and oriented x 3. Motor: No deficits noted. Sensory: Intact bilaterally all 4 extremities. Hematologic/Lymphatic: No ecchymosis, no lymphadenopathy. Course Vital Signs Vital signs: Vital Signs Temperature 37.3 C 07/04/25 19:13 Pulse 103 H 07/04/25 19:13 Respiratory Rate 18 07/04/25 19:13 Blood Pressure 148/85 H 07/04/25 19:13 Pulse Oximetry 97 07/04/25 19:13 Temperature 37.3 C 07/04/25 19:13 Temperature Source Oral 07/04/25 19:13 Pulse 103 H 07/04/25 19:13 Respiratory Rate 18 07/04/25 19:13 Blood Pressure 148/85 H 07/04/25 19:13 Blood Pressure Position Sitting 07/04/25 19:13 Pulse Oximetry 97 07/04/25 19:13 Oxygen Delivery Method Room Air 07/04/25 19:13 Oxygen Flow Rate 0 07/04/25 19:13 Pain Level 8 07/04/25 19:13 Lab/Test Results Lab/Test Results: 07/04/25 19:18 Blood Blood Culture - Pending 07/04/25 19:18 Blood Blood Culture - Pending Medical Decision Making 19-year-old male presents to the ER after a syncopal episode while getting out of the bathtub earlier this evening. Patient states he has been sick with nausea vomiting diarrhea for the last 4 to 5 days body aches and chills. He has been unable to keep down any oral fluids x 4 days. He is complaining of generalized abd pain and burning. He also reports a stabbing type pain in his chest and scalp soreness onto the back of his head. Past medical history includes appendectomy approximately 1 month ago. EKG was reviewed by myself and Dr. Mccollum ER attending, normal sinus rhythm, prolonged QT interval with a QT of 517, old EKG available for review. Please see official report. Workup ordered including CBC CMP lipase troponin urinalysis urine drug screen CT head and CT abdomen pelvis. Strep swab and Fluvid swab ordered. Differential diagnose include but not limited to dehydration, electrolyte imbalance, viral illness, CVA. Patient has slight leukocytosis with a white blood cell count of 12.56 sodium 132 potassium critically low at 2.6, chloride 92 anion gap is 13.4 glucose 115 bilirubin is 2.70 troponin is within normal limits, lipase 31. Fluvid and strep is pending at this time. Patient was given a liter of normal saline and lorazepam 0.5 mg for nausea due to the prolonged QT. IV potassium 10 mill equivalents IV piggyback ordered and oral potassium 40 mill equivalents ordered. On patient reevaluation he reports that his stomach is burning, 40 mg of Protonix IV ordered. Patient tolerated p.o. potassium, is receiving the potassium infusion. Care is to be handed off to oncoming provider Dr. Lorenzo pending repeat BMP and disposition. Recommended to repeat the BMP after the potassium infusion and also to tolerate p.o. fluids prior to discharge. This text was generated using [employer] system, please disregard any oddities of phrase or misspellings. Medical Records Medical records reviewed: Yes I reviewed the patient's medical records. Imaging Data Radiologic Study: Imaging: CT Scan Radiologist's impression: TECHNIQUE: Imaging protocol: Computed tomography of the head without contrast. COMPARISON: No relevant prior studies available. FINDINGS: Brain: Benign- appearing arachnoid cyst in the posterior fossa. No edema or hemorrhage. Cerebral ventricles: No ventriculomegaly. Paranasal sinuses: Minor mucosal thickening or retention cyst partially seen in the left maxillary sinus. Mastoid air cells: No mastoid effusion. Bones: No acute fracture. Soft tissues: No suspicious lesions. IMPRESSION: No acute intracranial findings. Thank you for allowing us to participate in the care of your patient. Dictated and Authenticated by: Margo Saini MD Radiologic Study #2: Imaging: CT Scan Radiologist's impression: FINDINGS: Lungs: Lung bases clear. Liver: Normal appearing liver. Gallbladder and biliary ducts: Normal appearing gallbladder. No calcified gallstones. No biliary dilatation. Pancreas: Normal appearing pancreas. Spleen: Normal appearing spleen. Adrenal glands: Normal appearing adrenal glands. Kidneys and ureters: Normal appearing kidneys. No hydronephrosis. Stomach and bowel: No oral contrast. Stomach partially decompressed. No small bowel dilatation to suggest obstruction. Normal-appearing colon. No evidence of diverticulitis or colitis. Appendix: Appendix not identified. Surgical material at the cecal apex suggesting a prior appendectomy. Correlation with surgical history recommended. Intraperitoneal space: No gross ascites or free air. Vasculature: Normal caliber abdominal aorta. Lymph nodes: No pathologically enlarged mesenteric, retroperitoneal, or pelvic sidewall lymph nodes. Urinary bladder: Normal appearing urinary bladder. Reproductive: Normal-appearing prostate gland and seminal vesicles. Bones/joints: No acute fracture seen among the bones of the abdomen or pelvis. Soft tissues: No significant ventral or inguinal hernia. IMPRESSION: No acute bowel pathology demonstrated. Thank you for allowing us to participate in the care of your patient. Dictated and Authenticated by: Iban Kuhn MD Lab Data Lab results reviewed: Yes I reviewed the patient's lab results. Labs: 07/04/25 19:18 Blood Blood Culture - Pending 07/04/25 19:18 Blood Blood Culture - Pending Laboratory Tests Range/Units 07/04/25 19:44 WBC (4.4-10.8) 10^3/uL 12.56 H RBC (4.36-5.78) 10^6/uL 5.84 H Hgb (13.5-17.5) g/dL 16.8 Hct (40.0-50.0) % 45.9 MCV (80-95) fL 79 L MCH (27.0-33.0) pg 28.8 MCHC (32.0-36.0) % 36.6 H RDW (11.8-14.1) % 12.3 Plt Count (130-400) 10^3/uL 385 MPV (8.0-11.0) fL 10.5 Immature Gran % % 0.6 Neutrophils % % 68.1 Lymphocytes % % 20.5 Monocytes % % 10.0 Eosinophils % % 0.3 Basophils % % 0.5 Nucleated RBC % (0.0-0.3) % 0.0 Absolute Neutrophils (1.2-6.7) 10^3/uL 8.55 H Absolute Lymphocytes (1.2-3.4) 10^3/uL 2.57 Absolute Monocytes (0.1-0.8) 10^3/uL 1.26 H Absolute Eosinophils (0.0-0.7) 10^3/uL 0.04 Absolute Basophils (0.0-0.2) 10^3/uL 0.06 Sodium (136-145) mmol/L 132 L Potassium (3.5-5.1) mmol/L 2.6 L* Chloride (98-107) mmol/L 92 L Carbon Dioxide (20.0-31.0) mmol/L 26.1 Anion Gap (3-11) mmol/L 13.4 H BUN (9-23) mg/dL 16 Creatinine (0.73-1.18) mg/dL 1.04 Est GFR (CKD-EPI 2020) (mL/min/1.73m2) 91.10 Glucose (74-106) mg/dL 115 H Calcium (8.3-10.6) mg/dL 10.4 Magnesium (1.6-2.6) mg/dL 1.8 Total Bilirubin (0.2-1.2) mg/dL 2.70 H AST (<34) U/L 34 ALT (10-49) U/L 20 Alkaline Phosphatase (46-116) U/L 77 Troponin I (<54) ng/L 8 Total Protein (5.7-8.2) g/dL 8.5 H Albumin (3.2-5.0) g/dL 5.3 H Lipase (<53) U/L 31 Add-On Test Request DONE [facility] All Active Problems Metabolic acidosis, increased anion gap (Acute) Acute appendicitis (Acute) Pediatric body mass index (BMI) of greater than or equal to 95th percentile for age (Acute 11/25/15) Family History Mother Healthy adult on routine physical examination Father Healthy adult on routine physical examination Grandparent Heart disease Hyperlipidemia Cancer Social History Smoking/Tobacco Use Status: Current every day Tobacco Type: e-cigarettes Smoking risk assessment performed?: Yes Alcohol Intake: current Alcohol Intake frequency: holidays/special occasions only Drug use: Current Sobriety Substance use type: marijuana Details: girlfriend smokes marijuana but pt states he is allergic to it Housing: house Pets and animals: Yes Pets and animals: cat(s) and dog(s) Do you feel safe at home: Yes Do you feel safe in your relationship?: Yes
[2025-07-04 19:51] LABS: Abs Immature Grans 0.07 10^3/uL (0.0-0.06); HCT 45.9 % (40.0-50.0); HGB 16.8 g/dL (13.5-17.5); Immature Grans % 0.6 %; MCH 28.8 pg (27.0-33.0); MCHC 36.6 % (32.0-36.0); MCV 79 fL (80-95); MPV 10.5 fL (8.0-11.0); Platelet Count 385 10^3/uL (130-400); RBC 5.84 10^6/uL (4.36-5.78); RDW 12.3 % (11.8-14.1); RDW-SD 34.6 fL; WBC 12.56 10^3/uL (4.4-10.8)
[2025-07-04] MEDS: Normal Saline - Diluent 50 ML VIAL IJ (20:00)
[2025-07-04] MEDS: Normal Saline Flush 10 ML SYR IVP (20:00)
[2025-07-04] MEDS: Omnipaque 350 MG/ML 100 ML BTL IJ (20:06)
[2025-07-04 20:08] LABS: Lipase 31 U/L (<53); Magnesium 1.8 mg/dL (1.6-2.6)
[2025-07-04 20:11] LABS: Lab Add On Test DONE
[2025-07-04] MEDS: Normal Saline 1,000 ML 1000 ML IV (20:18)
[2025-07-04 20:20] LABS: ALT 20 U/L (10-49); AST 34 U/L (<34); Albumin 5.3 g/dL (3.2-5.0); Alkaline Phosphatase 77 U/L (46-116); Anion Gap 13.4 mmol/L (3-11); BUN 16 mg/dL (9-23); Bilirubin, Total 2.70 mg/dL (0.2-1.2); CO2 26.1 mmol/L (20.0-31.0); Calcium 10.4 mg/dL (8.3-10.6); Chloride 92 mmol/L (98-107); Glucose 115 mg/dL (74-106); Potassium 2.6 mmol/L (3.5-5.1); Sodium 132 mmol/L (136-145); Total Protein 8.5 g/dL (5.7-8.2)
[2025-07-04 20:24] LABS: Troponin I 8 ng/L (<54)
[2025-07-04] MEDS: LORazepam 2 MG/ML VIAL 0.5 MG IVP (20:28)
[2025-07-04] MEDS: Normal Saline 1,000 ML 250 ML IV (20:29)
--- NOTE | 2025-07-04 20:32 | DI.[facility]_ITS ---
PROCEDURE INFORMATION: Exam: CT Head Without Contrast Exam date and time: 07/04/2025 19:58 Age: 19 years old Clinical indication: Other: Syncope, head injury TECHNIQUE: Imaging protocol: Computed tomography of the head without contrast. COMPARISON: No relevant prior studies available. FINDINGS: Brain: Benign-appearing arachnoid cyst in the posterior fossa. No edema or hemorrhage. Cerebral ventricles: No ventriculomegaly. Paranasal sinuses: Minor mucosal thickening or retention cyst partially seen in the left maxillary sinus. Mastoid air cells: No mastoid effusion. Bones: No acute fracture. Soft tissues: No suspicious lesions. IMPRESSION: No acute intracranial findings. Dictated and Authenticated by: Margo Saini MD. Orderin Isaias Srinivasan MD
--- NOTE | 2025-07-04 20:36 | DI.[facility]_ITS ---
PROCEDURE INFORMATION: Exam: CT Abdomen And Pelvis With Contrast Exam date and time: 07/04/2025 8:01 PM Age: 19 years old Clinical indication: Vomiting; Abdominal pain TECHNIQUE: Imaging protocol: Computed tomography of the abdomen and pelvis with contrast. Contrast material: OMNIPAQUE 350; Contrast volume: 75 ml; Contrast route: INTRAVENOUS (IV); COMPARISON: CT ABDOMEN PELVIS W 05/16/2025 1:38 PM FINDINGS: Lungs: Lung bases clear. Liver: Normal appearing liver. Gallbladder and biliary ducts: Normal appearing gallbladder. No calcified gallstones. No biliary dilatation. Pancreas: Normal appearing pancreas. Spleen: Normal appearing spleen. Adrenal glands: Normal appearing adrenal glands. Kidneys and ureters: Normal appearing kidneys. No hydronephrosis. Stomach and bowel: No oral contrast. Stomach partially decompressed. No small bowel dilatation to suggest obstruction. Normal-appearing colon. No evidence of diverticulitis or colitis. Appendix: Appendix not identified. Surgical material at the cecal apex suggesting a prior appendectomy. Correlation with surgical history recommended. Intraperitoneal space: No gross ascites or free air. Vasculature: Normal caliber abdominal aorta. Lymph nodes: No pathologically enlarged mesenteric, retroperitoneal, or pelvic sidewall lymph nodes. Urinary bladder: Normal appearing urinary bladder. Reproductive: Normal-appearing prostate gland and seminal vesicles. Bones/joints: No acute fracture seen among the bones of the abdomen or pelvis. Soft tissues: No significant ventral or inguinal hernia. IMPRESSION: No acute bowel pathology demonstrated. Dictated and Authenticated by: Iban Kuhn MD. Orderin Isaias Srinivasan MD
[2025-07-04] MEDS: POTASSIUM CHLORIDE 10 MEQ/100 ML BAG 100 MEQ IV_INF (20:45)
[2025-07-04] MEDS: Potassium Chloride Liquid 20 MEQ PKT 40 MEQ PO (21:00)
[2025-07-04] MEDS: Pantoprazole 40 MG VIAL IVP (21:00)
[2025-07-04 22:22] LABS: Glucose Negative (Negative)
[2025-07-04 22:27] LABS: COVID-19 PCR Negative (Negative); RSV PCR Negative (Negative)
[2025-07-04 22:28] LABS: C & S Indicated? No; RBC 0-2 HPF (0-2); WBC 0-2 HPF (0-5)
[2025-07-04 22:42] LABS: Cannabinoids THC Positive (Negative)
[2025-07-04 23:19] LABS: Anion Gap 9.2 mmol/L (3-11); BUN 14 mg/dL (9-23); CO2 26.6 mmol/L (20.0-31.0); Calcium 8.1 mg/dL (8.3-10.6); Chloride 99 mmol/L (98-107); Glucose 105 mg/dL (74-106); Potassium 2.9 mmol/L (3.5-5.1); Sodium 135 mmol/L (136-145)
[2025-07-04] MEDS: Prochlorperazine 10 MG/2 ML VIAL IVP (23:45)
[2025-07-05 00:01] VITALS: BP 133/66; PULSE 81; O2SAT 97
[2025-07-05] MEDS: POTASSIUM CHLORIDE 10 MEQ/100 ML BAG 100 MEQ IV_INF (00:35)
[2025-07-05 01:01] VITALS: BP 126/84; PULSE 99; O2SAT 96
[2025-07-05] MEDS: POTASSIUM CHLORIDE 10 MEQ/100 ML BAG 200 MEQ IV_INF (01:35)
[2025-07-05 02:00] VITALS: BP 119/59; PULSE 90; O2SAT 97
--- NOTE | 2025-07-05 02:30 | RT.EKG_ITS ---
APPROVED REPORT Exam: Resting ECG Reason for Exam: prolong qT Patient Location: E HR:84 bpm ECG Measurements Heart Rate 84 AXIS RI 141 P 50 QRSd 83 QRS 82 QT 396 T 27 QTc 468 Conclusion Sinus rhythm...normal P axis, V-rate 60- 99 - NSR at 84 Normal [place]/Intervals NS ST changes Compared to EKG from earlier on 07/04 the qT interval is now normal, otherwise no significant changes.
[2025-07-05 02:40] LABS: Anion Gap 10 mmol/L (3-11); BUN 12 mg/dL (9-23); CO2 22.0 mmol/L (20.0-31.0); Calcium 7.6 mg/dL (8.3-10.6); Chloride 104 mmol/L (98-107); Glucose 95 mg/dL (74-106); Potassium 3.3 mmol/L (3.5-5.1); Sodium 136 mmol/L (136-145)
[2025-07-05 02:46] VITALS: BP 116/59; PULSE 78; RESP 16; TEMP 36.7; O2SAT 97
== END 2025-07-05 03:23 | disposition home or self-care (01) ==
PROVIDERS: Registered Nurse Emergency; Emergency Provider Emergency Medicine; PCP Pediatrics
DX: R55 Syncope and collapse (principal); R11.2 Nausea with vomiting, unspecified; R19.7 Diarrhea, unspecified; R10.84 Generalized abdominal pain; E87.6 Hypokalemia; W18.2XXA Fall in (into) shower or empty bathtub, initial encounter
CPT/HCPCS: 80048; 80053; 80307; 83690; 87040; 87637; 87880; 93005; 96361; 96374; 96375; 99285; 70450; 74177; 81003; 81015; 83735; 84484; 85025; 87081; 93010; 99284; J0780; J2060; J2470; J3480; J3490